=== PATIENT | male | born 1970 | race Caucasian/White ===

== ENCOUNTER 2024-04-11 00:32 | Emergency (ER) | payer OTHER, SELFPAY ==
[2024-04-11 00:37] VITALS: BP 148/103; PULSE 94; RESP 16; TEMP 36.8; O2SAT 99; BMI 33.9
--- NOTE | 2024-04-11 00:51 | ED.GENADULT ---
HPI - General Adult General Chief complaint: Dental/Oral/Mouth Injury/Pain Stated complaint: tooth pain Time Seen by Provider: 04/11/24 00:37 Source: patient Mode of arrival: ambulatory Limitations: no limitations History of Present Illness HPI narrative: 53-year-old male presents the emergency department with reported dental pain. Says that he has an appointment with a dentist on Friday which is a day and a half from now. Reports he has been struggling with dental pain for about 1 week and noticed swelling extending up in the left cheek for the past 3 days. Reports he was seen by a dentist and is scheduled for the extraction in a day and a half. Initially told me he was prescribed naproxen for the infection and that he was taking this every 4 hours after initially taking 2 pills for the 1st dose. When asked about antibiotics he says that was is antibiotic and then with multiple subsequent questions I am unclear if he is being truthful. He then switch is his story to tell me that he was taking amoxicillin but the dosing does not seem truthful or consistent. He does not have his pill bottles to show me nor any paperwork from this dentist. Denies any new trauma or injury, no vision changes, no fever. Pain stems from the left upper premolar area. When asked what else he is taking for pain, he again gives me contra Victory information about aspirin,. Cannot tell me how many tablets are home any mg he took but this was all far earlier in the evening. When asked about NSAIDs, Tylenol, he reports that he is not using these and that they will not work. He is specifically requesting medication for pain. He tells me that his past medical history is benign. He does take a low-dose of Suboxone every other day. Reports that he has not had this for a few days and then mention something along the lines of because of the tooth needing treatment. I assumed that he is indicating that he would not have wanted the buprenorphine to interfere with any potentially given additional pain medication. He does become agitated very quickly with my questioning. Related Data Home Medications ?Medication ?Instructions ?Recorded ?Confirmed No Known Home Medications 04/11/24 04/11/24 Allergies Allergy/AdvReac Type Severity Reaction Status Date / Time No Known Drug Allergies Allergy Verified 04/11/24 00:39 [facility] Social History Non-prescribed substance use: denies use Exam Const: Vital Signs, click to edit/add: Vital Signs - 24 hr 04/11/24 00:37 Temperature 98.2 F Pulse Rate [Pulse Oximeter] 94 Respiratory Rate 16 Blood Pressure [Ri ght Upper Arm] 148/103 H Pulse Oximetry 99 Oxygen Delivery Me thod Room Air Documenting provider has reviewed patient's vital signs: yes Other: Initially cooperative but does become agitated with my line of questioning. Gives very contradictory story. Does not seem to be truthful with me HENMT: Other: No obvious signs of trauma to the head. There is some slight swelling to the zygomatic arch on the left cheek area. No significant facial cellulitis. Left upper cheek does have some swelling, lip does not. Several broken teeth, especially in the left upper jaw inside the oral cavity. Moist mucous membranes with no unusual drainage. No signs of bruising or recent dental trauma. Normal tongue and soft palate. Eye: Common normals: PERRL, EOMs intact bilaterally and conjunctivae normal Conjunctiva: conjunctiva(e) normal Pupil: PERRL Neck & C-Spine: Common normals: full ROM and no lymphadenopathy Resp: Common normals: normal respiratory effort and no use of accessory muscles Effort & inspection: able to speak in complete sentences Cardio: Common normals: regular rate, regular rhythm, S1 normal heart sound, S2 normal heart sound and no murmurs Rate: regular rate Rhythm: regular rhythm Heart sounds: S1 normal and S2 normal Psych: Other: Evasive to questions, contradictory statements, initially seemed anxious but then becomes quite irritable with my specific questioning. Skin: Narrative: No lacerations or signs of trauma. Course Course ED Course: Dental pain with some very mild facial swelling but no overwhelming signs of encephalitis, facial cellulitis. Broken teeth that are likely potential source for infection. Has make contact with dentist and does seem to be on amoxicillin. Patient is exhibiting narcotic-seeking behavior. I am absolutely not comfortable prescribing him narcotic medications. I counseled patient that is our policy to not give narcotics for dental pain except in rare an unusual circumstances which I do not feel as though he fits this criteria. Counseled patient that I would like to switch his antibiotic to Augmentin and will give his 1st dose here in the ED and will send subsequent prescription to his pharmacy. Offered Toradol and Tylenol for pain. Patient became frustrated and left against medical advice. Vital Signs Vital signs: Initial Vital Signs Temperature 98.2 F 04/11/24 00:37 Temperature Source Temporal Artery Scan 04/11/24 00:37 Pulse Rate 94 04/11/24 00:37 Respiratory Rate 16 04/11/24 00:37 Blood Pressure 148/103 H 04/11/24 00:37 Blood Pressure Mean 118 H 04/11/24 00:37 Blood Pressure Position Sitting 04/11/24 00:37 Pulse Oximetry 99 04/11/24 00:37 Oxygen Delivery Method Room Air 04/11/24 00:37 Vital Signs Temperature 98.2 F 04/11/24 00:37 Pulse Rate 94 04/11/24 00:37 Respiratory Rate 16 04/11/24 00:37 Blood Pressure 148/103 H 04/11/24 00:37 Pulse Oximetry 99 04/11/24 00:37 Oxygen Delivery Method Room Air 04/11/24 00:37 Temperature 98.2 F 04/11/24 00:37 Pulse Rate 94 04/11/24 00:37 Respiratory Rate 16 04/11/24 00:37 Blood Pressure 148/103 H 04/11/24 00:37 Pulse Oximetry 99 04/11/24 00:37 Oxygen Delivery Method Room Air 04/11/24 00:37 Discharge Plan Discharge Clinical Impression: Dental caries Patient Disposition: Left Against Medical Advice Prescriptions: No Action No Known Home Medications Follow Up/Referrals: Provider,Not a Local [Primary Care Provider] - Stand Alone Forms: [employer] Info Instructions
== END 2024-04-11 01:10 | disposition left against medical advice (07) ==
PROVIDERS: Emergency Provider Family Medicine
DX: K02.9 Dental caries, unspecified (principal); Z53.29 Procedure and treatment not carried out because of patient's decision for other reasons
CPT/HCPCS: 99282; 99283